=== PATIENT | female | born 1990 | race Two or more races ===

== ENCOUNTER 2022-03-23 11:09 | Emergency (ER) | payer OTHER, MEDICAID ==
[~2022-03-23] VITALS: Ht 167.6 cm; Wt 93.1 kg
[2022-03-23 12:31] VITALS: BP 147/89
[2022-03-23] MEDS ORDERED: ACETAMINOPHEN 500 MG TAB PO ONE (12:45)
[2022-03-23] MEDS ORDERED: IBUP800T27 PO (13:08)
== END 2022-03-23 13:21 | disposition home or self-care (01) ==
LOC: ER 11:09
DX: S20.219A Contusion of unspecified front wall of thorax, initial encounter (principal); S50.10XA Contusion of unspecified forearm, initial encounter; V43.52XA Car driver injured in collision with other type car in traffic accident, initial encounter; Y93.89 Activity, other specified; Y92.89 Other specified places as the place of occurrence of the external cause; Y99.8 Other external cause status
CPT/HCPCS: 71046